=== PATIENT | female | born 1965 | race American Indian/Alaskan Native ===

== ENCOUNTER 2017-07-13 12:35 | Emergency (ER) | payer OTHER ==
[2017-07-13 12:42] VITALS: BP 159/100
[2017-07-13] MEDS ORDERED: FLEXERIL PO ONE (15:24)
[2017-07-13] MEDS ORDERED: TORADOL IM ONE (15:24)
--- NOTE | 2017-07-13 15:57 | Emergency Department Report ---
HPI - General Chief Complaint: Extremity Injury, Lower Time Seen by Provider: 07/13/17 15:23 - HPI HPI: Patient is a 52-year-old female with no prior medical history presents to ED complaining of left buttock pain that radiates down the thigh for the past 2 days. Patient states that pain is sharp and intermittent in nature. Patient states today it is constant. Patient reports no injuries, trauma or falls to or leg. Patient states she takes no medication and has no drug allergies. She denies any loss of sensation, numbness or calf pain bilaterally. ED Past Medical Hx - Past Medical History Hx Hypertension: No Hx Heart Attack/AMI: No Hx Congestive Heart Failure: No Hx Diabetes: No Hx Deep Vein Thrombosis: No Hx Pulmonary Embolism: No Hx Liver Disease: No Hx Renal Disease: No Hx Sickle Cell Disease: No Hx Arthritis: Yes (arthritis in knees) Hx Kidney Stones: No Hx Asthma: No Hx COPD: No Hx Tuberculosis: No Additional medical history: fibroids - Surgical History Hx Coronary Stent: No Hx Pacemaker: No Hx Internal Defibrillator: No Additional Surgical History: partial hysterectomy - Social History Smoking Status: Never Smoker Substance Use Type: Alcohol - Medications Home Medications: Home Medications Medication Instructions Recorded Confirmed Last Taken Type Folic Acid [Folvite] 1 mg PO QDAY #30 tablet 05/30/13 Unknown Rx Pantoprazole [Protonix] 40 mg PO QDAY #30 tablet 05/30/13 Unknown Rx Thiamine [Vitamin B-1] 100 mg PO ONCE #30 tablet 05/30/13 Unknown Rx Amoxicillin [Trimox CAP] 500 mg PO Q8H #30 capsule 11/14/13 Unknown Rx HYDROcodone/APAP 10-325 [[place] 1 each PO Q4-6H PRN #20 tablet 11/14/13 Unknown Rx 10-325 mg TAB] Doni/Polymyx B/Dexameth Opth(Nf 2 drops OD Q6H #5 ml 11/14/13 Unknown Rx [Maxitrol] Cyclobenzaprine [Flexeril 10 MG 10 mg PO QHS #20 tablet 07/13/17 Unknown Rx TAB] Diclofenac Dr (Nf) 50 mg PO BID #30 tablet. 07/13/17 Unknown Rx ED Review of Systems ROS: Stated complaint: LEFT SIDE PAIN Other details as noted in HPI Constitutional: denies: chills, fever Eyes: denies: eye pain, eye discharge, vision change ENT: denies: ear pain, throat pain Respiratory: denies: cough, shortness of breath, wheezing Cardiovascular: denies: chest pain, palpitations Endocrine: no symptoms reported Gastrointestinal: denies: abdominal pain, nausea, diarrhea Genitourinary: denies: urgency, dysuria, discharge Musculoskeletal: denies: back pain, joint swelling, arthralgia Skin: denies: rash, lesions Neurological: denies: headache, weakness, paresthesias Psychiatric: denies: anxiety, depression Hematological/Lymphatic: denies: easy bleeding, easy bruising Physical Exam - Physical Exam Vital Signs: Vital Signs 07/13/17 12:40 Temperature 98.6 F Pulse Rate 100 H Respiratory 18 Rate Blood Pressure 159/100 O2 Sat by Pulse 98 Oximetry Physical Exam: GENERAL: Alert and oriented x3, no apparent distress, Normal Gait, atraumatic. HEAD: Head is normocephalic and a-traumatic. EYES: Extra ocular muscles are intact. Pupils are equal, round, and reactive to light and accommodation. LUNGS: Symetrical with respiration, No wheezing, no rales or crackles, CTAB. HEART: S1, S2 present, regular rate and rhythm without murmur, no rubs, no gallops. Non tender to palpation EXTREMITIES/MUSCULOSKELETAL: No cyanosis, clubbing, rash, lesions or edema. Full ROM bilaterally, no swelling, no erythematous, tenderness, Homans sign negative bilaterally. LE Pulses 2+ bilaterally. LE 5+ strength bilaterally, left sided straight leg raise positive NEUROLOGIC: The patient is cooperative with no focal neurologic deficits. Cranial nerves II through XII are grossly intact. Normal speech. Normal sensation in bilateral upper and lower extremities, No loss of sensation, . SKIN: Warm and dry, No lesions, No ulceration or induration present. ED Course Vital Signs 07/13/17 12:40 Temperature 98.6 F Pulse Rate 100 H Respiratory 18 Rate Blood Pressure 159/100 O2 Sat by Pulse 98 Oximetry ED Medical Decision Making - Medical Decision Making 52-year-old female presents to ED with lumbar radiculopathy ED course: Patient received Toradol and Flexeril in ED. Vital signs are normal patient is in no acute distress Discussed with patient follow-up with primary care physician. Discussed the patient and take medications as prescribed. Patient has no neurological deficit. Patient is alert and oriented 3 and understands all instructions given. Discussed drowsiness effect of Flexeril makes her drowsy and not to operate machinery while taking flexeril Critical care attestation.: If time is entered above; I have spent that time in minutes in the direct care of this critically ill patient, excluding procedure time. ED Disposition Clinical Impression: Lumbar radiculopathy Disposition: TO HOME OR SELFCARE Is pt being admited?: No Does the pt Need Aspirin: No Condition: Stable Instructions: Low Back Strain (ED), Lumbar Radiculopathy (ED) Additional Instructions: Take medication as prescribed Follow-up with her primary care physician. If any worsening symptoms to return to ED. Prescriptions: Cyclobenzaprine [Flexeril 10 MG TAB] 10 mg PO QHS #[address] (Nf) 50 mg PO BID #30 tablet. Referrals: PRIMARY CARE, [Primary Care Provider] - 3-5 Days [facility] [Outside] - 3-5 Days [facility] [Outside] - 3-5 Days [facility] [Outside] - 3-5 Days Forms: Work/School Release Form, Accompanied Note Time of Disposition: 16:01
== END 2017-07-13 16:24 | disposition home or self-care (01) ==
LOC: ED 12:35
DX: M54.16 Radiculopathy, lumbar region (principal); M19.90 Unspecified osteoarthritis, unspecified site; Z90.711 Acquired absence of uterus with remaining cervical stump
CPT/HCPCS: 96372; 99282; J1885

== ENCOUNTER 2022-01-10 10:00 | Emergency (ER) | payer SELFPAY ==
--- NOTE | 2022-01-10 11:18 | XRay Report ---
RIGHT HUMERUS 2 VIEW(S) INDICATION / CLINICAL INFORMATION: arm pain COMPARISON: None available. FINDINGS: BONES / JOINT(S): No acute fracture or subluxation. 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 SOFT TISSUES: No significant abnormality. ADDITIONAL FINDINGS: None. IMPRESSION: 1. No acute findings. Signer Name: Reynaldo Winslow MD Signed: 01/10/2022 11:13 AM Workstation Name: [email or web address]
--- NOTE | 2022-01-10 11:19 | XRay Report ---
RIGHT FOREARM 2 VIEW(S) INDICATION / CLINICAL INFORMATION: arm pain COMPARISON: None available. FINDINGS: BONES / JOINT(S): No acute fracture or subluxation. No significant arthritis. SOFT TISSUES: No significant abnormality. ADDITIONAL FINDINGS: None. IMPRESSION: 1. No acute findings. Signer Name: Reynaldo Winslow MD Signed: 01/10/2022 11:15 AM Workstation Name: [email or web address]
[2022-01-10] MEDS ORDERED: KETOROLAC 30 MG/1 ML INJ IM ONE (14:43)
[2022-01-10] MEDS ORDERED: dexAMETHasone 4 MG/ML VIAL IM ONE (14:43)
[2022-01-10] MEDS ORDERED: oxyCODONE /ACETAMINOPHEN 5-325MG TAB PO ONE (14:44)
[2022-01-10] MEDS ORDERED: CYCLOBENZAPRINE 10 MG TAB PO ONE (14:44)
--- NOTE | 2022-01-10 14:51 | Emergency Department Report ---
Upper Extremity - HPI Chief Complaint: Neuro Symptoms/Deficit Stated Complaint: PAIN RIGHT ARM Time Seen by Provider: 01/10/22 14:42 Upper Extremity: Right Arm, Right Forearm Occurred When: Today Mechanism: Other Severity: severe (States that she woke up with pain) Symptoms: Yes Pain with Movement, Yes Limited Range of Movement, Yes Numbness, N o Deformity, No Weakness, No Swelling, No Bruising/Ecchymosis, No Laceration or Abrasion Other History: 56-year-old black female with no past medical history presents to the emergency department for evaluation of right arm pain. She states that she woke up this morning and has severe pain to her right arm that started in her shoulder and goes down the entire length of her arm. She states that she has been unable to lift right arm severe pain. She denies injury or trauma. She states that she has not taken any medications for symptoms. She states that she is having intermittent numbness and tingling to her right hand also. ED Review of Systems ROS: Stated complaint: PAIN RIGHT ARM Other details as noted in HPI Comment: All other systems reviewed and negative Constitutional: denies: chills, fever Eyes: denies: vision change ENT: denies: as per HPI, congestion Respiratory: denies: cough, shortness of breath, SOB with exertion, SOB at rest, stridor, wheezing Cardiovascular: denies: chest pain, palpitations Gastrointestinal: denies: abdominal pain, nausea, vomiting Genitourinary: denies: urgency, dysuria, frequency, hematuria, discharge Musculoskeletal: denies: back pain Skin: denies: rash, lesions Neurological: numbness, paresthesias (Right arm only). denies: headache, weakness Psychiatric: denies: anxiety (Intermittently to right arm), depression Hematological/Lymphatic: denies: easy bleeding, easy bruising, swollen glands ED Past Medical Hx - Past Medical History Previous Medical History?: Yes Hx Hypertension: No Hx Heart Attack/AMI: No Hx Congestive Heart Failure: No Hx Diabetes: No Hx Deep Vein Thrombosis: No Hx Pulmonary Embolism: No Hx Liver Disease: No Hx Renal Disease: No Hx Sickle Cell Disease: No Hx Arthritis: Yes (arthritis in knees) Hx Kidney Stones: No Hx Asthma: No Hx COPD: No Hx Tuberculosis: No Additional medical history: fibroids - Surgical History Past Surgical History?: Yes Hx Coronary Stent: No Hx Pacemaker: No Hx Internal Defibrillator: No Additional Surgical History: partial hysterectomy - Social History Smoking Status: Never Smoker Substance Use Type: Alcohol - Medications Home Medications: Home Medications Medication Instructions Recorded Confirmed Last Taken Type Folic Acid [Folvite] 1 mg PO QDAY #30 tablet 05/30/13 Unknown Rx Pantoprazole [Protonix] 40 mg PO QDAY #30 tablet 05/30/13 Unknown Rx Thiamine [Vitamin B-1] 100 mg PO ONCE #30 tablet 05/30/13 Unknown Rx Amoxicillin [Trimox CAP] 500 mg PO Q8H #30 capsule 11/14/13 Unknown Rx HYDROcodone/APAP 10-325 [[place] 1 each PO Q4-6H PRN #20 tablet 11/14/13 Unknown Rx 10-325 mg TAB] Doni/Polymyx B/Dexameth Opth(Nf 2 drops OD Q6H #5 ml 11/14/13 Unknown Rx [Maxitrol] Cyclobenzaprine [Flexeril 10 MG 10 mg PO QHS #20 tablet 07/13/17 Unknown Rx TAB] Diclofenac Dr (Nf) 50 mg PO BID #30 tablet.dr 07/13/17 Unknown Rx Cyclobenzaprine [Flexeril] 10 mg PO TID PRN #30 tab 01/10/22 Unknown Rx Lidocaine [Lidoderm] 1 each TP DAILY #10 patch 01/10/22 Unknown Rx Naproxen [Naprosyn] 500 mg PO BID #14 tab 01/10/22 Unknown Rx methylPREDNISolone [Medrol 4MG 4 mg PO DAILY #1 pack 01/10/22 Unknown Rx DOSEPAK (21 tabs)] Upper Extremity Exam - Exam General: Vital signs noted. No distress. Alert and acting appropriately. Head and Torso: Yes Neck Tenderness (Right side only with palpation.), No HEENT Abnormality, No Chest/Lungs Abnormality, No Abdominal Tenderness, No Back Tenderness Shoulder Exam: Yes Shoulder Tenderness, Yes Clavicle Tenderness, No Normal Range of Motion in Shoulder, No Shoulder Deformity, No AC Joint Tenderness Arm Exam: No Arm/Humerus Tenderness, No Arm Deformity Elbow: Yes Normal Range of Motion in Elbow, No Elbow Tenderness, No Elbow Deformity Forearm: Yes Forearm Tenderness, No Forearm Deformity, No Pain with Pronation, No Pain with Supination Wrist: Yes Normal ROM in Wrist, No Wrist Tenderness, No Wrist Deformity, No Snuffbox Tenderness, No Pain with Axial Thumb Compression Hand: Yes Normal ROM in Digit(s), No Hand Tenderness, No Hand Deformity, No Digit Tenderness, No Digit(s) Deformity, No Tendon Dysfunction CMS Exam: Yes Normal Distal Pulses, Yes Normal Capillary Refill, Yes Normal Distal Sensation, No Broken Skin ED Course Vital Signs 01/10/22 10:25 Temperature 98 F Pulse Rate 68 Respiratory 16 Rate Blood Pressure 152/90 [Left] O2 Sat by Pulse 100 Oximetry ED Medical Decision Making - Radiology Data Radiology results: report reviewed, image reviewed Right humerus x-ray: FINDINGS: BONES / JOINT(S): No acute fracture or subluxation. 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 SOFT TISSUES: No significant abnormality. ADDITIONAL FINDINGS: None. IMPRESSION: 1. No acute findings. Right forearm x-ray: FINDINGS: BONES / JOINT(S): No acute fracture or subluxation. No significant arthritis. SOFT TISSUES: No significant abnormality. ADDITIONAL FINDINGS: None. IMPRESSION: 1. No acute findings. - Medical Decision Making 56-year-old black female with no past medical history presents to the emergency department for evaluation of right arm pain. She states that she woke up this morning and has severe pain to her right arm that started in her shoulder and goes down the entire length of her arm. She states that she has been unable to lift right arm severe pain. She denies injury or trauma. She states that she has not taken any medications for symptoms. She states that she is having intermittent numbness and tingling to her right hand also. Symptoms and exam most consistent with right cervical radicular pain. Right humerus and forearm x-ray with no abnormalities noted. Patient will be given Decadron IM x1 in the emergency department along with a one-time dose of Toradol 30 mg IM, Flexeril 10 mg p.o., 1/325 1 p.o. while in the emergency department then discharged home with Medrol Dosepak, naproxen, Flexeril, and Lidoderm patches to use as needed for pain. She is advised to take medications as prescribed and follow-up with primary care provider if no improvement or worsening symptoms. She verbalizes understanding of and agreement with plan of care. Critical care attestation.: If time is entered above; I have spent that time in minutes in the direct care of this critically ill patient, excluding procedure time. ED Disposition Clinical Impression: Radicular pain in right arm Disposition: 01 HOME / SELF CARE / HOMELESS Is pt being admited?: No Does the pt Need Aspirin: No Condition: Stable Instructions: Cervical Radiculopathy, [id number] Additional Instructions: Medications as prescribed. Follow-up with primary care provider if no improvement or worsening symptoms. Return to the emergency department as needed Prescriptions: Cyclobenzaprine [Flexeril] 10 mg PO TID PRN #30 tab PRN Reason: Muscle Spasm Lidocaine [Lidoderm] 1 each TP DAILY #10 patch methylPREDNISolone [Medrol 4MG DOSEPAK (21 tabs)] 4 mg PO DAILY #1 pack Naproxen [Naprosyn] 500 mg PO BID #14 tab Referrals: DENNIS RETANA MD [Staff Physician] - 3-5 Days Forms: Work/School Release Form(ED) Time of Disposition: 15:09
[2022-01-10 16:07] VITALS: BP 153/90
== END 2022-01-10 16:06 | disposition home or self-care (01) ==
LOC: ED 10:00
DX: M79.601 Pain in right arm (principal); M19.90 Unspecified osteoarthritis, unspecified site
CPT/HCPCS: 73060; 73090; 96372; 99283; J1100; J1885